=== PATIENT | female | born 1965 | race Caucasian/White ===

== ENCOUNTER 2019-02-08 03:22 | Inpatient (IN) | payer BC ==
[~2019-02-08] VITALS: Ht 165.1 cm; Wt 128.9 kg
[2019-02-08] VITALS (7 sets, daily range): BP systolic 126–144; BP diastolic 53–73
--- NOTE | 2019-02-08 03:28 | NUR ---
PILLOW AND WARM BLANKET PROVIDED. AWAITING ORDERS. SIDE RAILS X2 AND CALL LIGHT WITHIN REACH. 1L IV NSS INITIATED BY EMS AND 4MG OF ZOFRAN WAS GIVEN IN ROUTE. NAUSEA HAS IMPROVED MILDLY BUT WORSENS WHEN DIZZINESS WORSENS. WILL CONTINUE TO MONITOR.
[2019-02-08] MEDS ORDERED: ZIAC 10-6.25 M1 EACH PO (03:29)
[2019-02-08] MEDS ORDERED: CITALOPRAM20 MG PO (03:30)
[2019-02-08] MEDS ORDERED: LISINOPRIL20 MG PO (03:30)
--- NOTE | 2019-02-08 03:45 | NUR ---
UNABLE TO TOLERATE ANY TYPE OF MOVEMENT. PROVIDER AWARE AND REQUESTS ORTHOSTATIC VITALS AND URINE BE OBTAINED SHE TOLERATES.
[2019-02-08 03:49] LABS: BASO # 0.1 10*3/uL (0.0-0.1); BASO % 0.4 % (0.0-1.0); EOS % 0.4 % (1.0-4.0); HEMATOCRIT 41.8 % (37.0-47.0); HEMOGLOBIN 14.3 g/dl (12.0-16.0); LYMPH # 1.8 10*3/uL (1.3-4.4); LYMPH % 15.9 % (27.0-41.0); MEAN CELL VOLUME 95.9 fl (81.0-99.0); MEAN CORPUSCULAR HGB 32.8 pg (27.0-31.0); MEAN CORPUSCULAR HGB CONC 34.2 g/dl (33.0-37.0); MEAN PLATELET VOLUME 8.7 fl (9.6-12.3); MONO # 0.5 10*3/uL (0.1-1.0); MONO % 4.4 % (3.0-9.0); NEUT # 8.8 10*3/uL (2.3-7.9); NEUT % 78.5 % (47.0-73.0); PLATELET COUNT AUTOMATED 346 10*3/uL (130-400); RED BLOOD COUNT 4.36 10*6/uL (4.10-5.10); RED CELL DISTRI WIDTH 12.3 % (0-14.5); WHITE BLOOD COUNT 11.2 10*3/uL (4.8-10.8)
[2019-02-08 04:06] LABS: ALBUMIN 3.5 gm/dl (3.1-4.5); ALKALINE PHOSPHATASE 74 U/L (45-117); BUN 8 mg/dl (7-24); CHLORIDE 104 mmol/L (98-107); CREATININE 0.58 mg/dL (0.55-1.02); POTASSIUM 3.8 mmol/L (3.5-5.1); SGOT/AST 27 IU/L (3-35); SGPT/ALT 51 U/L (12-78); SODIUM 137 mmol/L (136-145); TOTAL PROTEIN 7.4 gm/dL (6.4-8.2)
[2019-02-08 04:07] LABS: TROPONIN I < 0.015 ng/ml (<0.045)
--- NOTE | 2019-02-08 04:34 | NUR ---
UPON ENTERING ROOM, IS ASLEEP AND IN NO OBVIOUS DISTRESS. AWAKENED EASILY TO NAME. RELAYS SHE IS FEELING BETTER AT THE MOMENT AND AGREEABLE TO ATTEMPT ORTHOSTATIC VITALS. TOLERATED LYING FLAT AND VITALS OBTAINED, HOWEVER, UPON ATTEMPTING TO SIT UP SHE IS UNABLE TO TOLERATE IT AT ALL. SYMPTOMS INSTANTLY WORSENED. REPOSITIONED WITH HOB FLAT AND SIDE RAIL PULLED UP. NOTIFIED PROVIDER.
--- NOTE | 2019-02-08 05:37 | NUR ---
NO IMPROVEMENT OF DIZZINESS AND IS REFUSING TO ATTEMPT ORTHOSTATIC VITALS. HAS TURNED HERSELF OVER IN THE BED. SIDE RIALS X [address] WILL MONITOR.
--- NOTE | 2019-02-08 05:40 | NUR ---
TAKEN FOR CT VIA STRETCHER.
--- NOTE | 2019-02-08 06:15 | NUR ---
Resting quietly and in no obvious distress.
--- NOTE | 2019-02-08 06:43 | NUR ---
DENIES ANY IMPROVEMENT OF DIZZINESS. ASSISTED ON AND OFF OF BED PAIN BUT ONLY VOIDED A MINUTE AMOUNT THAT DID NOT FILL MORE THAN 2 ML IN URINE COLLECTION TUBE. ASSISTED TO PULL PANTS BACK UP AND TURNED ONTO RIGHT SIDE. UPDATED AND DENIES ANY ADDITIONAL NEEDS. WILL MONITOR.
--- NOTE | 2019-02-08 07:01 | NUR ---
NURSE TO NURSE GIVEN TO
--- NOTE | 2019-02-08 07:09 | NUR ---
REPORT RECEIVED FROM PREVIOUS SHIFT. PT IS LAYING IN BED AND SEEMS TO BE IN NO ACUTE DISTRESS. PT OFFERED BREAKFAST AND SHE DECLINES. PENDING BED PLACEMENT TO THE FLOOR. WILL CONTINUE TO MONITOR.
--- NOTE | 2019-02-08 08:21 | NUR ---
PT REQUESTING TO GO TO THE BATHROOM. OFFERED BEDSIDE TOILET SHE ATTEMPTS TO GET OUT OF BED TO USE THE BATHROOM. SHE SITS UP AND HAS TO MUCH DIFFICULTY WITH THE DIZZINESS TO GET OUT OF BED. PT WOULD LIKE A CATHETER, ATTEMPTED CATHETER AND NOT SUCCESSFUL. SHE IS ON A BEDPAN AT THIS TIME.
--- NOTE | 2019-02-08 10:07 | NUR ---
COMPLETE BED CHANGE ACCOMPLISHED DUE TO SPILLAGE OF BEDPAN. PT UNABLE TO MOVE OR SIT UPRIGHT WITHOUT SEVERE DISTRESS FROM VERTIGO, MOANING, YELLING, FLAILING ARMS. LIGHT SENSITIVITY IS ALSO PRESENT, COVERS HER FACE WITH TOWEL. MOTHER HAS LEFT THE FACILITY. NO OTHER COMPLAINTS. WHEN STILL, SYMPTOMS NEARLY DISAPPEAR.
--- NOTE | 2019-02-08 10:55 | NUR ---
PT HAS NOW BEEN INCONTINENT 2 TIMES WITH TWO BED CHANGES DESPITE CALL SOUZA AND BED SALDIVAR.
--- NOTE | 2019-02-08 11:05 | NUR ---
PTS MTHER DID HAVE PTS LARGE BLACK BAG IN HER ARMS. MOTHER DID TAKE THIS BAG WHEN SHE LEFT THE DEPT.
--- NOTE | 2019-02-08 12:05 | NUR ---
Patient requests to come back later to yoni mcknight done. She is feeling very naueated and cannot tolerate.
[2019-02-08 12:22] LABS: BILIRUBIN NEGATIVE (NEGATIVE); BLOOD NEGATIVE (NEGATIVE); CLARITY SL CLOUDY (CLEAR); COLOR YELLOW (YELLOW); GLUCOSE NEGATIVE (NEGATIVE); KETONE NEGATIVE (NEGATIVE); LEUKO ESTERASE NEGATIVE (NEGATIVE); NITRITE NEGATIVE (NEGATIVE); PH 6.5 (5.0-9.0); SPECIFIC GRAVITY <= 1.005 (1.005-1.030); UROBILINOGEN 0.2 E.U./dl (0.2-1.0)
[2019-02-08 12:24] LABS: URINE AMPHETAMINES < 1000 (1000ng/ml); URINE BARBITURATES < 200 (200ng/ml); URINE BENZODIAZEPINES < 200 (200ng/ml); URINE CANNABINOIDS (THC) < 50 (50ng/ml); URINE COCAINE < 300 (300ng/ml); URINE METHADONE < 300 (300ng/ml); URINE OPIATES < 300 (300ng/ml)
[2019-02-08 12:25] LABS: URINE PHENCYCLIDINE < 25 (25ng/ml)
--- NOTE | 2019-02-08 12:25 | NUR ---
UNABLE TO CONFIRM ANY OF HER HOME MEDICATIONS. CALLED MOTHER TO SEE IF SHE COULD READ MEDS OFF MEDICINE BOTTLE LABELS. STATES SHE DID NOT RECEIVED PATIENT'S BAG IN ER. ER NURSE HUA STATES THAT HE GAVE PATIENT'S MOTHER THE PATIENT'S BAG. BAG NOT PRESENT IN ROOM. BAG NOT PRESENT IN ER ROOM. NURSING MAKEUP SALES CONSULTANT NOTIFIED.
--- NOTE | 2019-02-08 12:28 | NUR ---
MEDS UPDATE TO BEST OF ABILITY BASED ON PATIENT STATING SHE TAKES 3 MEDICATIONS, 2 FOR BLOOD PRESSURE, AND ONE "CRAZY PILL", AND READING THROUGH MED CLAIM HISTORY.
--- NOTE | 2019-02-08 12:30 | NUR ---
ORTHOS UNABLE TO BE OBTAINED AT THIS TIME DUE TO INABILITY TO REPOSITION SELF AND STAND INDEPENDENTLY. PATIENT EXPERIENCES EXTREME DIZZINESS AND NAUSEA UPON MOVEMENT.
[2019-02-08 12:35] LABS: BACTERIA TRACE
--- NOTE | 2019-02-08 17:57 | NUR ---
PATIENT RECEIVED ANTIVERT FOR DIZZINESS AND NAUSEA.
[2019-02-09] VITALS: BP 117/52
--- NOTE | 2019-02-09 03:59 | NUR ---
PRN NORCO ADMINISTERED FOR PT C/O HEADACHE RATED A 6/10 ON THE PAIN SCALE. WILL CONTINUE TO MONITOR AND REASSESS. NO OTHER COMPLAINTS AT THIS TIME. CALL LIGHT IN REACH
[2019-02-09 06:34] LABS: BASO % 0.3 % (0.0-1.0); EOS # 0.1 10*3/uL (0.0-0.4); EOS % 0.9 % (1.0-4.0); HEMATOCRIT 38.3 % (37.0-47.0); HEMOGLOBIN 12.7 g/dl (12.0-16.0); LYMPH # 2.7 10*3/uL (1.3-4.4); LYMPH % 29.2 % (27.0-41.0); MEAN CELL VOLUME 98.2 fl (81.0-99.0); MEAN CORPUSCULAR HGB 32.6 pg (27.0-31.0); MEAN CORPUSCULAR HGB CONC 33.2 g/dl (33.0-37.0); MEAN PLATELET VOLUME 8.7 fl (9.6-12.3); MONO # 0.6 10*3/uL (0.1-1.0); MONO % 6.5 % (3.0-9.0); NEUT # 5.8 10*3/uL (2.3-7.9); NEUT % 62.2 % (47.0-73.0); PLATELET COUNT AUTOMATED 314 10*3/uL (130-400); RED CELL DISTRI WIDTH 12.7 % (0-14.5); WHITE BLOOD COUNT 9.4 10*3/uL (4.8-10.8)
[2019-02-09 06:48] LABS: BUN 8 mg/dl (7-24); CHLORIDE 108 mmol/L (98-107); CHOLESTEROL 136 mg/dL (<200); CREATININE 0.55 mg/dL (0.55-1.02); HDL CHOLESTEROL 35 mg/dl (40-60); LDL CHOLESTEROL 75 mg/dL (9-159); PHOSPHOROUS 2.5 mg/dL (2.5-4.9); POTASSIUM 3.8 mmol/L (3.5-5.1); SODIUM 140 mmol/L (136-145); TRIGLYCERIDES 128 mg/dl (<150); VLDL CHOLESTEROL 26 mg/dL (6-40)
[2019-02-09 06:56] LABS: FREE T4 1.05 ng/dl (0.76-1.46)
[2019-02-09 07:46] LABS: VITAMIN D, 25-HYDROXY 8.7 ng/mL (30-100)
[2019-02-09 08:00] VITALS: BP 152/82
--- NOTE | 2019-02-09 08:30 | NUR ---
PHYSICAL THERAPY PATIENT SEEN BY PT THIS AM AND BASED ON ASSESSMENT SHE IS UP AD JAMIE AND MOVING ABOUT HER ROOM WITHOUT ASSISTANCE AND STATES SHE DOES NOT WANT OR NEED PT SERVICES AT THIS TIME . THANK YOU FOR REFERRAL [facility]
[2019-02-09] MEDS ORDERED: MECLIZINE HCL25 M2 PO (11:46)
[2019-02-09 12:00] VITALS: BP 144/73
--- NOTE | 2019-02-09 14:00 | NUR ---
Discharge instructions reviewed with patient/family. Patient receptive and verbalizes understanding. Follow-up care arranged. Written instructions given to patient/family. MIKE LEWIS
== END 2019-02-09 14:00 | disposition home or self-care (01) | DRG 149 ==
LOC: ED 03:22 → EDHOLD 06:40 → 4E 06:40
PROVIDERS: Internal Medicine; Nurse Practitioner; ADMIT Internal Medicine
DX: R42 Dizziness and giddiness (principal); Z68.42 Body mass index [BMI] 45.0-49.9, adult; R11.2 Nausea with vomiting, unspecified; D72.829 Elevated white blood cell count, unspecified; R73.9 Hyperglycemia, unspecified; R00.1 Bradycardia, unspecified; H53.149 Visual discomfort, unspecified; C50.912 Malignant neoplasm of unspecified site of left female breast; F41.9 Anxiety disorder, unspecified; I10 Essential (primary) hypertension; E66.01 Morbid (severe) obesity due to excess calories; Z82.49 Family history of ischemic heart disease and other diseases of the circulatory system; Z79.899 Other long term (current) drug therapy